=== PATIENT | female | born 1965 | race Caucasian/White ===

== ENCOUNTER → 2025-07-31 12:53 | Outpatient (CLI) | payer OTHER, SELFPAY ==
--- NOTE | 2025-07-31 13:07 | DI.RAD.S_ITS ---
PROCEDURE: XR THORACIC SPINE 2V INDICATIONS: BACKACHE TECHNIQUE: 3 views of the thoracic spine were acquired. COMPARISON: None. FINDINGS: Bones: No fractures or dislocations. No suspicious bony lesions. 12 pairs of ribs are noted, and appear intact where visualized. Multilevel degenerative changes with disc height loss and osteophytosis. Soft tissues: No paravertebral stripe thickening. IMPRESSION: Multilevel degenerative changes of the thoracic spine. Dictated by: Ankur Mccormack M.D. on 07/31/2025 at 14:53 Approved by: Ankur Mccormack M.D. on 07/31/2025 at 14:53
--- NOTE | 2025-07-31 13:07 | DI.RAD.S_ITS ---
PROCEDURE: XR LUMBAR SPINE 2-3V INDICATIONS: BACKACHE TECHNIQUE: 3 views of the lumbar spine were acquired. COMPARISON: None. FINDINGS: Bones: 5 [id number] vertebrae are present. Levo scoliotic curvature. No vertebral body compression fractures. No suspicious bony lesions. Mild osteophytosis and facet arthropathy. Soft tissues: Overlying bowel gas pattern is normal. No suspicious soft tissue calcifications. IMPRESSION: Mild degenerative changes of the lumbar spine with levo scoliotic curvature. Dictated by: Ankur Mccormack M.D. on 07/31/2025 at 14:52 Approved by: Ankur Mccormack M.D. on 07/31/2025 at 14:52
== END ==
PROVIDERS: PCP Family Medicine; Referring Provider Family Medicine; Visit Provider Family Medicine
DX: M54.9 Dorsalgia, unspecified (principal)
CPT/HCPCS: 72070; 72100